=== PATIENT | male | born 1945 | race Caucasian/White ===

== ENCOUNTER 2024-04-13 17:25 | Inpatient (IN) | payer MEDICARE, OTHER ==
[~2024-04-13] VITALS: Ht 165.1 cm; Wt 46.3 kg
[2024-04-13] MEDS ORDERED: UNKNOWN BP MED (17:34)
[2024-04-13 22:15] VITALS: BP 166/86; TEMP 97.7; O2SAT 98
[2024-04-13] MEDS ORDERED: MAGNESIUM HYDROXIDE 30 ML LIQUID UDC PO PRN (22:45)
[2024-04-13] MEDS ORDERED: ACETAMINOPHEN 325 MG TABLET PO PRN (22:45)
[2024-04-13] MEDS ORDERED: MAG HYDROX/AL HYDROX/SIMETH 30 ML LIQUID UDC PO PRN (22:45)
[2024-04-13] MEDS: BLOOD SUGAR DIAGNOSTIC 1 EACH STRIP VI ONE (23:16)
[2024-04-14 08:01] VITALS: BP 147/74; TEMP 98; O2SAT 96
[2024-04-14] MEDS: VENLAFAXINE XR 37.5 MG CAP.SR.24H PO SCH (09:00)
[2024-04-14] MEDS: NIFEdipine XL 30 MG TABSR PO SCH (09:00)
[2024-04-14 15:21] VITALS: BP 173/88; TEMP 98; O2SAT 98
[2024-04-14] MEDS: MIRTAZAPINE 15 MG TABLET PO SCH (21:00)
[2024-04-15 08:24] VITALS: BP 121/69; TEMP 97.7; O2SAT 96
[2024-04-15 17:02] VITALS: BP 119/60; TEMP 97.8; O2SAT 96
[2024-04-15 22:43] VITALS: BP 125/73; TEMP 98
[2024-04-15 22:45] VITALS: BP 125/73; TEMP 98; O2SAT 96
[2024-04-16 08:35] VITALS: BP 177/78; TEMP 97.9; O2SAT 98
[2024-04-16 15:58] VITALS: BP 95/61; TEMP 97.9; O2SAT 97
[2024-04-16 20:04] VITALS: BP 145/68; TEMP 97.8; O2SAT 96
[2024-04-17 07:45] VITALS: BP 140/67; TEMP 98.4; O2SAT 96
[2024-04-17 15:56] VITALS: BP 139/64; TEMP 97.8; O2SAT 97
[2024-04-17 20:30] VITALS: BP 142/62; TEMP 97.9; O2SAT 100
[2024-04-18 08:16] VITALS: BP 135/77; TEMP 98.4; O2SAT 98
[2024-04-18 15:48] VITALS: BP 126/70; TEMP 98; O2SAT 98
[2024-04-18 19:47] VITALS: BP 130/68; TEMP 98.3; O2SAT 96
[2024-04-18] MEDS: ATORVASTATIN 20 MG TABLET PO SCH (20:25)
[2024-04-18] MEDS: MIRTAZAPINE 15 MG TABLET PO SCH (20:25)
[2024-04-19 07:39] VITALS: BP 145/65; TEMP 98; O2SAT 99
[2024-04-19 07:54] LABS: BASOPHILS # (AUTO) 0.1 K/UL (0.0-0.2); BASOPHILS % (AUTO) 1.2 % (0.0-2.0); EOSINOPHILS # (AUTO) 0.1 K/uL (0.0-0.7); EOSINOPHILS % (AUTO) 2.5 % (0.0-7.0); HEMATOCRIT 37.3 % (36.7-47.1); HEMOGLOBIN 12.1 g/dL (12.5-16.3); LYMPHOCYTES % (AUTO) 36.2 % (20.5-51.5); MEAN CORPUSCULAR HEMOGLOBIN 29.2 uug (23.8-33.4); MEAN CORPUSCULAR HGB CONC 32 g/dL (32.5-36.3); MONOCYTES # (AUTO) 0.6 K/uL (0.1-1.30); MONOCYTES % (AUTO) 9.9 % (0.0-11.0); NEUTROPHILS # (AUTO) 2.8 K/uL (1.8-8.9); NEUTROPHILS % (AUTO) 50.2 % (38.5-71.5); PLATELET COUNT (AUTO) 272 K/uL (152-348); RED BLOOD CELL COUNT(AUTO) 4.15 MIL/uL (4.06-5.63); RED CELL DISTRIBUTION WIDTH 14.4 % (12.1-16.2); WHITE BLOOD COUNT (AUTO) 5.6 K/uL (3.6-10.2)
[2024-04-19 08:21] LABS: CREATININE 1.1 mg/dL (0.6-1.3); MAGNESIUM 2.2 mg/dL (1.8-2.4); PHOSPHOROUS 3.7 mg/dL (2.5-4.9); POTASSIUM 4.7 mmol/L (3.5-5.1)
[2024-04-19 11:19] LABS: DIFFERENTIAL COMMENT 1
[2024-04-19 15:38] VITALS: BP 141/62; TEMP 98; O2SAT 99
[2024-04-20 07:56] VITALS: BP 131/60; TEMP 98; O2SAT 96
[2024-04-20] MEDS: OLANZAPINE 2.5 MG TABLET PO SCH (11:45)
[2024-04-20 15:14] VITALS: BP 131/69; TEMP 98; O2SAT 98
[2024-04-20 20:00] VITALS: BP 104/57; TEMP 98.1; O2SAT 97
[2024-04-21 08:03] VITALS: BP 124/60; TEMP 97.8; O2SAT 96
[2024-04-21 16:20] VITALS: BP 154/67; TEMP 98.2; O2SAT 95
[2024-04-22 20:00] VITALS: BP 153/68; TEMP 97.4; O2SAT 98
[2024-04-22] MEDS: ZOLPIDEM 5 MG TABLET PO PRN (22:32)
[2024-04-23 07:52] VITALS: BP 101/62; TEMP 97.8; O2SAT 97
[2024-04-23 16:39] VITALS: BP 122/65; TEMP 97.9; O2SAT 97
[2024-04-23 20:16] VITALS: BP 127/64; TEMP 97.8; O2SAT 99
[2024-04-24 10:13] VITALS: BP 131/60; TEMP 98.1; O2SAT 97
[2024-04-25 08:03] VITALS: BP 169/85; TEMP 98; O2SAT 96
[2024-04-25 15:24] VITALS: BP 105/51; TEMP 98; O2SAT 98
[2024-04-25 19:39] VITALS: BP 136/68; TEMP 98.1; O2SAT 96
[2024-04-26 07:30] VITALS: BP 127/61; TEMP 98; O2SAT 96
[2024-04-26 15:19] VITALS: BP 158/97; TEMP 98.2; O2SAT 100
[2024-04-26] MEDS: LORAZEPAM 2 MG/1 ML VIAL IM ONE (17:54)
[2024-04-26] MEDS: LORAZEPAM 1 MG TABLET PO PRN (19:34)
[2024-04-26 20:00] VITALS: BP 135/82; TEMP 97.4; O2SAT 94
[2024-04-26] MEDS: OLANZAPINE 10 MG VIAL IM ONE (21:33)
[2024-04-27 07:51] VITALS: BP 169/70; TEMP 98; O2SAT 98
[2024-04-27] MEDS: risperiDONE 1 MG TABLET PO SCH (09:07)
[2024-04-27 15:06] VITALS: BP 119/87; TEMP 98; O2SAT 98
[2024-04-28 07:54] VITALS: BP 164/87; TEMP 98.2; O2SAT 98
[2024-04-28] MEDS: OLANZAPINE 10 MG VIAL IM STA (08:16)
[2024-04-28 15:12] VITALS: BP 122/61; TEMP 98; O2SAT 96
[2024-04-28] MEDS: HALOPERIDOL LACTATE 5 MG/1 ML VIAL IM ONE (17:50)
[2024-04-28] MEDS: diphenhydrAMINE 50 MG/1 ML VIAL IM ONE (17:50)
[2024-04-28 20:00] VITALS: BP 140/90; TEMP 98.1; O2SAT 100
[2024-04-29 07:30] VITALS: BP 110/63; TEMP 97.5; O2SAT 89
[2024-04-29 11:34] LABS: ALANINE AMINOTRANSFERASE 18 U/L (16-63); ALBUMIN 2.9 g/dL (3.4-5.0); ALKALINE PHOSPHATASE 82 U/L (50-136); ASPARTATE AMINOTRANSFERASE 14 U/L (15-37); BILIRUBIN,TOTAL 0.6 mg/dL (0.2-1.0); CALCIUM 8.7 mg/dL (8.5-10.1); CARBON DIOXIDE 29 mmol/L (21-32); CHLORIDE 104 mmol/L (98-107); CREATININE 1.1 mg/dL (0.6-1.3); GLUCOSE 151 mg/dL (74-106); POTASSIUM 4.7 mmol/L (3.5-5.1); SODIUM SERUM 139 mmol/L (136-145); TOTAL PROTEIN, SERUM 6.5 g/dL (6.4-8.2); UREA NITROGEN, BLOOD 31 mg/dL (7-18)
[2024-04-29 16:29] VITALS: BP 139/69; TEMP 97.7; O2SAT 81
[2024-04-30 07:54] VITALS: BP 170/87; TEMP 98.3; O2SAT 98
[2024-04-30] MEDS: LISINOPRIL 5 MG TABLET PO SCH (12:30)
[2024-04-30 16:29] VITALS: BP 148/78; TEMP 98; O2SAT 97
[2024-04-30 20:04] VITALS: BP 129/77; TEMP 98.1; O2SAT 96
[2024-05-01] MEDS: LITHIUM CARBONATE 300 MG CAPSULE PO SCH (08:18)
[2024-05-01 08:20] VITALS: BP 154/85; TEMP 97.4; O2SAT 97
[2024-05-01 16:09] VITALS: BP 121/54; TEMP 97.7; O2SAT 96
[2024-05-01 19:38] VITALS: BP 122/60; TEMP 98.1; O2SAT 95
[2024-05-01] MEDS: QUETIAPINE FUMARATE 100 MG TABLET PO SCH (20:27)
[2024-05-02 07:51] VITALS: BP 88/48; TEMP 98; O2SAT 96
[2024-05-02 14:03] VITALS: BP 135/67
[2024-05-02 15:43] VITALS: BP 130/59; TEMP 98; O2SAT 96
[2024-05-02 19:58] VITALS: BP 115/51; TEMP 97.8; O2SAT 96
[2024-05-02 21:27] LABS: *BILIRUBIN,URIN NEGATIVE (NEGATIVE); *BLOOD, URINE NEGATIVE (NEGATIVE); *CLARITY,URINE CLEAR (CLEAR); *COLOR,URINE YELLOW (YELLOW); *KETONES,URINE TRACE (NEGATIVE); *PROTEIN,URINE NEGATIVE (NEGATIVE); *UROBILINOGEN,URINE 0.2 E.U./dl (NORMAL); LEUKOCYTE ESTERASE ,URINE NEGATIVE (NEGATIVE); NITRITE, URINE NEGATIVE (NEGATIVE); UGLUCOSE NEGATIVE (NEGATIVE)
[2024-05-02 21:45] LABS: RBC,URINE 0-3 /HPF (0-3); WBC,URINE NONE SEEN /HPF (0-3)
[2024-05-02 21:46] LABS: BACTERIA,URINE NONE SEEN /HPF (NONE SEEN); SQUAMOUS EPITHELIAL CELL,UR FEW /HPF (NONE SEEN)
[2024-05-03 07:52] VITALS: BP 100/47; TEMP 98.2; O2SAT 94
[2024-05-03 16:34] VITALS: BP 102/51; TEMP 98; O2SAT 96
[2024-05-03 20:00] VITALS: BP 112/68; TEMP 97.8; O2SAT 95
[2024-05-04 07:53] VITALS: BP 157/60; TEMP 98; O2SAT 96
[2024-05-04 08:35] VITALS: BP 157/60
[2024-05-04] MEDS ORDERED: LORAZEPAM 2 MG/1 ML VIAL IM ONE (12:15)
[2024-05-04] MEDS: LORAZEPAM 2 MG/1 ML VIAL IM ONE (12:57)
== END 2024-05-04 13:05 | DRG 885 ==
LOC: ER 17:28 → GPS 22:13
PROVIDERS: ADMIT Psychiatry & Neurology Psychiatry; ATTEND Internal Medicine
DX: F39 Unspecified mood [affective] disorder (principal); F03.92 Unspecified dementia, unspecified severity, with psychotic disturbance; F03.94 Unspecified dementia, unspecified severity, with anxiety; F15.10 Other stimulant abuse, uncomplicated; F12.10 Cannabis abuse, uncomplicated; Z91.148 Patient's other noncompliance with medication regimen for other reason; R79.89 Other specified abnormal findings of blood chemistry; Z87.820 Personal history of traumatic brain injury; E78.5 Hyperlipidemia, unspecified; M62.81 Muscle weakness (generalized); I10 Essential (primary) hypertension; Z91.81 History of falling
CPT/HCPCS: 36415; 70030-TC; 70450; 83735; 84100; 84443; 84481; 85025; J1200; J1630; J2060; J2358